=== PATIENT | female | born 1985 | race Caucasian/White ===

== ENCOUNTER 2017-02-10 10:04 | Emergency (ER) | payer OTHER ==
[~2017-02-10] VITALS: Ht 162.6 cm; Wt 71.2 kg
[2017-02-10 11:19] VITALS: BP 113/71
== END 2017-02-10 11:19 | disposition home or self-care (01) ==
LOC: ED 10:04
DX: J02.9 Acute pharyngitis, unspecified (principal)

== ENCOUNTER 2017-02-13 09:07 | Emergency (ER) | payer OTHER ==
[~2017-02-13] VITALS: Ht 162.6 cm; Wt 70.8 kg
[2017-02-13 11:19] VITALS: BP 119/76
== END 2017-02-13 11:19 | disposition home or self-care (01) ==
LOC: ED 09:07
DX: J02.9 Acute pharyngitis, unspecified (principal); H10.32 Unspecified acute conjunctivitis, left eye
CPT/HCPCS: J0561